=== PATIENT | female | born 1980 | race Caucasian/White ===

== ENCOUNTER 2016-12-16 19:47 | Emergency (ER) | payer MEDICAID ==
[2016-12-16 21:15] VITALS: BP 133/68
== END 2016-12-16 21:15 | disposition home or self-care (01) ==
LOC: ED 19:47
DX: K05.10 Chronic gingivitis, plaque induced (principal)
CPT/HCPCS: J1885

== ENCOUNTER 2018-04-26 06:07 | Emergency (ER) | payer MEDICAID ==
[~2018-04-26] VITALS: Ht 162.6 cm; Wt 99.8 kg
[2018-04-26 06:57] LABS: BASOPHIL % 1.1 % (0-2); PLATELET COUNT 257 x10^3mcL (130-400); RED CELL DISTRIBUTION WIDTH 13.6 % (11.5-14.5)
[2018-04-26 07:00] LABS: CALCIUM 8.6 mg/dL (8.5-10.1); CARBON DIOXIDE 24.6 mmol/L (21-32); CHLORIDE SERUM 103 mmol/L (98-107); CREATININE SERUM 0.9 mg/dL (0.6-1.0); GFR1 > 60 mL/min; GLUCOSE SERUM 122 mg/dL (74-106); POTASSIUM SERUM 3.9 mmol/L (3.5-5.1); SODIUM SERUM 138 mmol/L (136-145)
[2018-04-26 07:04] LABS: ALBUMIN 3.5 g/dL (3.4-5.0); ALKALINE PHOSPHATASE 91 U/L (46-116); ALT/SGPT 35 U/L (14-59); AST/SGOT 17 U/L (15-37); BILIRUBIN TOTAL 0.31 mg/dL (0.20-1.00); LIPASE 180 IU/L (73-393)
[2018-04-26 07:56] LABS: UA SPECIFIC GRAVITY >=1.030 (1.005-1.035); microscopic required? YES; urine erythrocyte 3+ (NEGATIVE)
[2018-04-26 11:05] VITALS: BP 155/84
== END 2018-04-26 11:05 | disposition home or self-care (01) ==
LOC: ED 06:07
PROVIDERS: Emergency Medicine
DX: K80.20 Calculus of gallbladder without cholecystitis without obstruction (principal); N13.2 Hydronephrosis with renal and ureteral calculous obstruction
CPT/HCPCS: J1885; J2405; J7030

== ENCOUNTER 2020-02-18 06:08 | Emergency (ER) | payer MEDICAID, SELFPAY ==
[~2020-02-18] VITALS: Ht 157.5 cm; Wt 100.8 kg
[2020-02-18 06:11] VITALS: BP 165/100; Ht 157.5 cm; Wt 100.8 kg
== END 2020-02-18 07:20 | disposition home or self-care (01) ==
LOC: ED 06:08
DX: B02.9 Zoster without complications (principal)